=== PATIENT | female | born 1950 | race Caucasian/White ===

== ENCOUNTER 2016-03-24 21:26 | Emergency (ER) | payer BC, OTHER ==
[~2016-03-24] VITALS: Ht 162.6 cm; Wt 61.2 kg
--- NOTE | ~2016-03-24 | EKG ---
[address] [place] [address] ELECTROCARDIOGRAM REPORT Name: CHACORTA MCCARTNEY Room #: DEP [facility] [id number] Admission: 03/24/16 Attend Phys: Discharge: 03/24/16 Date of : 52 Report #: [id number] THIS REPORT FOR: //name// [facility] ED Test Date: 2016-03-24 Test Time: 21:53:48 Pat Name: CHACORTA MCCARTNEY Department: Room: Gender: F Mangle Feeder: wing : 1950 Requested By: Shelly Valderrama Order Number: [id number] MD: Vlad Fitch Measurements Intervals [place] Rate: 63 P: 54 PA: 170 QRS: 11 QRSD: 90 T: 12 QT: 424 QTc: 435 Interpretive Statements Sinus rhythm Nonspecific T abnrm no previous electrocardiogram available for comparison Electronically Signed On 03-25-2016 8:58:49 [employer] by Vlad Fitch [email or web address] <ELECTRONICALLY SIGNED> By: Vlad Fitch MD, [facility] 03/25/16 [id number] Vlad Fitch MD, FACC /EPI
[~2016-03-24 21:26] MED LIST: FOLIC ACID1 MG PO; LEVOTHROID100 MC1; LEVOTHYROXINE0.05 MG PO; SIMVASTATIN10 MG PO; TRAZODONE HCL50 MG PO; UNICOMPLEX M TA1 TA1 PO; VITAMIN B-1100 M1 PO
[2016-03-24 21:54] LABS: ABSOLUTE NEUTROPHILS 3.1 thou/uL (1.4-8.2); BASOPHILS 0.7 % (0.0-2.0); EOSINOPHILS 2.3 % (0.0-3.0); HEMATOCRIT 41.6 % (37.0-47.0); HEMOGLOBIN 13.9 gm/dL (12.0-15.0); LYMPHOCYTES 44.5 % (24.0-44.0); MCH 30.3 pg (26.0-34.0); MCHC 33.4 % (28.0-37.0); MCV 90.8 fL (80.0-100.0); MONOCYTES 6.2 % (1.0-8.0); PLATELET COUNT 247 thou/uL (150-400); POLYS 46.3 % (36.0-66.0); RBC 4.58 mil/uL (4.20-5.00); RDW 13.3 % (10.5-14.5); WBC 6.7 thou/uL (4.0-11.0)
[2016-03-24 21:59] LABS: MANUAL DIFF NO
[2016-03-24 22:06] LABS: ANION GAP 9 mmol/L (7-16); BUN 17 mg/dL (7-18); CALCIUM 9.7 mg/dL (8.5-10.1); CHLORIDE 103 mmol/L (98-107); CO2 29 mmol/L (21-32); CREATININE 0.8 mg/dL (0.6-1.3); GLUCOSE 109 mg/dL (70-99); POTASSIUM 4.4 mmol/L (3.5-5.1); SODIUM 141 mmol/L (136-145)
[2016-03-24 22:15] LABS: ALBUMIN 4.4 g/dL (3.4-5.0); ALKALINE PHOSPHATASE 89 U/L (46-116); SGOT 30 U/L (15-37); SGPT 40 U/L (30-65); TOTAL BILIRUBIN 0.4 mg/dL (<0.1-1.0); TOTAL PROTEIN 7.8 g/dL (6.4-8.2); TROPONIN-I < 0.04 ng/mL (<0.04-0.07)
[2016-03-24 23:19] LABS: URINE BILIRUBIN NEGATIVE (Negative); URINE BLOOD NEGATIVE (Negative); URINE COLOR YELLOW; URINE GLUCOSE-RANDOM* NEGATIVE (Negative); URINE KETONES NEGATIVE (Negative); URINE NITRITE NEGATIVE (Negative); URINE PROTEIN (DIPSTICK) NEGATIVE (Negative); URINE SPECIFIC GRAVITY <= 1.005 (1.003-1.035); URINE UROBILINOGEN 0.2 E.U./dl (0.2-1.0)
== END 2016-03-24 23:35 | disposition home or self-care (01) ==
LOC: ER 21:26
PROVIDERS: Nurse Practitioner Family
DX: R55 Syncope and collapse (principal); F10.99 Alcohol use, unspecified with unspecified alcohol-induced disorder